=== PATIENT | male | born 1980 | race Caucasian/White ===

== ENCOUNTER 2018-02-12 23:18 | Observation (INO) | payer MEDICAID ==
[~2018-02-12] VITALS: Ht 188 cm; Wt 137.5 kg
[~2018-02-12 23:18] MED LIST: ALBU8HFA2 INH; ALBU90I INH; ALBU90OI INH; ALLO300 PO; AMOX500 PO; ASACOL HD800 MG PO; AZIT250 PO; BENZ100A PO; CEPH500 PO; CIPHYDOTSU BOTHEARS; CIPRSO LEFTEYE; CLIN300 PO; CODGUAEL PO; DOXY100 PO; FAMO20; FENT25TP TOP; HYDACE5 PO; HYDGUAL120 PO; HYDMOR2 PO; HYDR1TAB94 PO; IBUP800 PO; NAPR220; NAPR500 PO; NEOPOLHCSU OT; OMEP40CA12 PO; ONDA8 PO; OXYACE5T PO; PRED20 PO; PROC10 PO; PROC25S PR; PROCODE120 PO; PROM25; PROM25 PO; PROM25S PR; Pepcid40 MG PO; Protonix40 MG PO; RANI150 PO; RXAMOX500 PO; RXPROCODSY PO; SUCR1 PO; SULTRIDS PO; TAMS.4ER PO; TRAM50 PO; TYLENOL PRN; Zofran Odt4 MG PO; Zofran Odt8 MG SL; Zofran4 MG PO; Zofran8 MG PO
[2018-02-12 23:46] LABS: BASOPHILS ABSOLUTE AUTO 0.08 K/mm3 (0.00-0.23); BASOPHILS PERCENT AUTO 1 % (0-2); EOSINOPHILS ABSOLUTE AUTO 0.09 K/mm3 (0.00-0.68); EOSINOPHILS PERCENT AUTO 1 % (0-6); Hematocrit 53.5 % (37.0-53.0); Hemoglobin 18.4 g/dL (13.5-17.5); IMMATURE GRAN ABSOLUTE AUTO 0.06 K/mm3 (0.00-0.10); IMMATURE GRAN PERCENT AUTO 1 % (0-1); LYMPHOCYTES ABSOLUTE AUTO 3.08 K/mm3 (0.84-5.20); LYMPHOCYTES PERCENT AUTO 29 % (21-46); MONOCYTES ABSOLUTE AUTO 1.27 K/mm3 (0.16-1.47); MONOCYTES PERCENT AUTO 12 % (4-13); Mean Corpuscular HGB Conc 34.4 g/dL (31.5-36.5); Mean Corpuscular Volume 87 fL (80-100); Mean Platelet Volume 9.9 fL (9.1-12.4); NEUTROPHILS ABSOLUTE AUTO 6.08 K/mm3 (1.96-9.15); NEUTROPHILS PERCENT AUTO 57 % (41-73); Platelet Count 262 K/mm3 (150-400); RDW Coefficient Variation 11.8 % (11.7-14.2); RDW Standard Deviation 37.5 fL (35.1-46.3); Red Blood Cell Count 6.13 M/mm3 (4.30-5.90); White Blood Cell Count 10.66 K/mm3 (4.00-11.30)
[2018-02-13 00:06] LABS: Alanine Aminotransfer (ALT/SGP 52 U/L (12-78); Albumin, Blood 4.3 g/dL (3.4-5.0); Alk Phos 70 U/L (50-136); Anion Gap 15 mmol/L (6-16); Aspartate Aminotrans (AST/SGOT 29 U/L (12-37); Bilirubin, Total 0.8 mg/dL (0.1-1.0); Blood Urea Nitrogen 17 mg/dL (8-24); Bun/Creatinine Ratio 16.7 (12.0-20.0); CO2, Blood 20 mmol/L (21-32); Calcium, Blood 9.6 mg/dL (8.5-10.1); Chloride, Blood 101 mmol/L (98-108); Creatinine, Blood 1.02 mg/dL (0.60-1.20); Globulin, Blood 4.2 g/dL (2.2-4.0); Glomerular Filtration Rate >60 (60-); Glucose, Blood 142 mg/dL (70-99); Potassium, Blood 3.5 mmol/L (3.5-5.5); Sodium, Blood 136 mmol/L (136-145); Total Protein, Blood 8.5 g/dL (6.4-8.2); Troponin I <0.015 ng/mL (0.000-0.040)
[2018-02-13 00:13] LABS: Influenza A Negative (NEGATIVE); Influenza B Negative (NEGATIVE)
[2018-02-13 07:40] LABS: BASOPHILS ABSOLUTE AUTO 0.01 K/mm3 (0.00-0.23); BASOPHILS PERCENT AUTO 0 % (0-2); EOSINOPHILS ABSOLUTE AUTO 0.01 K/mm3 (0.00-0.68); EOSINOPHILS PERCENT AUTO 0 % (0-6); Hemoglobin 16.4 g/dL (13.5-17.5); IMMATURE GRAN ABSOLUTE AUTO 0.06 K/mm3 (0.00-0.10); IMMATURE GRAN PERCENT AUTO 1 % (0-1); LYMPHOCYTES PERCENT AUTO 7 % (21-46); MONOCYTES ABSOLUTE AUTO 0.49 K/mm3 (0.16-1.47); MONOCYTES PERCENT AUTO 5 % (4-13); Mean Corpuscular HGB 30.1 pg (26.0-34.0); Mean Corpuscular HGB Conc 34.2 g/dL (31.5-36.5); Mean Corpuscular Volume 88 fL (80-100); Mean Platelet Volume 9.9 fL (9.1-12.4); NEUTROPHILS ABSOLUTE AUTO 8.32 K/mm3 (1.96-9.15); NEUTROPHILS PERCENT AUTO 87 % (41-73); Platelet Count 206 K/mm3 (150-400); RDW Coefficient Variation 11.9 % (11.7-14.2); RDW Standard Deviation 37.9 fL (35.1-46.3); Red Blood Cell Count 5.45 M/mm3 (4.30-5.90); White Blood Cell Count 9.59 K/mm3 (4.00-11.30)
[2018-02-13 07:56] LABS: Anion Gap 13 mmol/L (6-16); Blood Urea Nitrogen 18 mg/dL (8-24); Bun/Creatinine Ratio 19.2 (12.0-20.0); CO2, Blood 21 mmol/L (21-32); Calcium, Blood 8.8 mg/dL (8.5-10.1); Chloride, Blood 104 mmol/L (98-108); Creatinine, Blood 0.94 mg/dL (0.60-1.20); Glomerular Filtration Rate >60 (60-); Glucose, Blood 145 mg/dL (70-99); Potassium, Blood 3.6 mmol/L (3.5-5.5); Sodium, Blood 138 mmol/L (136-145)
[2018-02-13] MEDS ORDERED: ONDA4ODT MM (12:19)
[2018-02-13] MEDS ORDERED: OMEPRAZOLE20 MG PO (12:20)
== END 2018-02-13 13:16 | disposition home or self-care (01) ==
LOC: ER 23:18 → MEDS 02-13 04:25 → ENPENDDIS 02-13 12:23 → MEDS 02-13 13:16
PROVIDERS: Emergency Medicine; Family Medicine
DX: F12.988 Cannabis use, unspecified with other cannabis-induced disorder (principal); K21.0 Gastro-esophageal reflux disease with esophagitis; K92.0 Hematemesis; I10 Essential (primary) hypertension; E66.01 Morbid (severe) obesity due to excess calories; R00.0 Tachycardia, unspecified; E86.0 Dehydration; Z87.891 Personal history of nicotine dependence; Z68.38 Body mass index [BMI] 38.0-38.9, adult
CPT/HCPCS: 36415; 74176; 80048; 80053; 83690; 84484; 85025; 87804; 93005; 93010; 96361; 96374; 96375; 96376; 99285-25; C9113; G0378; J1200; J1630; J2765; J7030

== ENCOUNTER 2018-10-06 10:19 | Day surgery (SDC) | payer OTHER ==
[~2018-10-06] VITALS: Ht 190.5 cm; Wt 149.6 kg
[~2018-10-06 10:19] MED LIST changes: +ALBU90OI; +OMEPRAZOLE20 MG PO; +ONDA4ODT MM
== END 2018-10-06 13:00 | disposition home or self-care (01) ==
LOC: ORSCSDS 10:19
PROVIDERS: Internal Medicine Gastroenterology
PROC: 0DBP8ZX Excision of Rectum, Via Natural or Artificial Opening Endoscopic, Diagnostic (ICD-10-PCS; principal; 2018-10-06 11:30)
DX: K62.5 Hemorrhage of anus and rectum (principal); K62.1 Rectal polyp; K57.30 Diverticulosis of large intestine without perforation or abscess without bleeding; K64.8 Other hemorrhoids; Z87.891 Personal history of nicotine dependence; E66.01 Morbid (severe) obesity due to excess calories; Z68.41 Body mass index [BMI] 40.0-44.9, adult; Z79.899 Other long term (current) drug therapy
CPT/HCPCS: 88305; J2250; J2704; J7120

== ENCOUNTER 2019-06-03 21:06 | Emergency (ER) | payer OTHER ==
[~2019-06-03] VITALS: Ht 190.5 cm; Wt 156.5 kg
[2019-06-03 22:22] LABS: BASOPHILS ABSOLUTE AUTO 0.03 K/mm3 (0.00-0.23); BASOPHILS PERCENT AUTO 0 % (0-2); EOSINOPHILS PERCENT AUTO 0 % (0-6); Hematocrit 50.8 % (37.0-53.0); Hemoglobin 17.4 g/dL (13.5-17.5); IMMATURE GRAN ABSOLUTE AUTO 0.06 K/mm3 (0.00-0.10); IMMATURE GRAN PERCENT AUTO 0 % (0-1); LYMPHOCYTES ABSOLUTE AUTO 1.25 K/mm3 (0.84-5.20); LYMPHOCYTES PERCENT AUTO 8 % (21-46); MONOCYTES ABSOLUTE AUTO 0.33 K/mm3 (0.16-1.47); MONOCYTES PERCENT AUTO 2 % (4-13); Mean Corpuscular HGB 30.4 pg (26.0-34.0); Mean Corpuscular HGB Conc 34.3 g/dL (31.5-36.5); Mean Corpuscular Volume 89 fL (80-100); Mean Platelet Volume 10.2 fL (9.1-12.4); NEUTROPHILS PERCENT AUTO 89 % (41-73); Platelet Count 244 K/mm3 (150-400); RDW Coefficient Variation 11.6 % (11.7-14.2); RDW Standard Deviation 37.3 fL (35.1-46.3); Red Blood Cell Count 5.72 M/mm3 (4.30-5.90); White Blood Cell Count 15.07 K/mm3 (4.00-11.30)
[2019-06-03 22:40] LABS: Alanine Aminotransfer (ALT/SGP 97 U/L (12-78); Albumin, Blood 4.2 g/dL (3.4-5.0); Albumin/Globulin Ratio 1.1 (0.8-1.8); Alk Phos 59 U/L (50-136); Anion Gap 10 mmol/L (6-16); Aspartate Aminotrans (AST/SGOT 51 U/L (12-37); Bilirubin, Total 0.8 mg/dL (0.1-1.0); Blood Urea Nitrogen 17 mg/dL (8-24); Bun/Creatinine Ratio 17.7 (12.0-20.0); CO2, Blood 23 mmol/L (21-32); Calcium, Blood 9.4 mg/dL (8.5-10.1); Chloride, Blood 106 mmol/L (98-108); Creatinine, Blood 0.96 mg/dL (0.60-1.20); Globulin, Blood 3.7 g/dL (2.2-4.0); Glomerular Filtration Rate >60 (60-); Glucose, Blood 188 mg/dL (70-99); Potassium, Blood 3.8 mmol/L (3.5-5.5); Sodium, Blood 139 mmol/L (136-145); Total Protein, Blood 7.9 g/dL (6.4-8.2)
== END 2019-06-04 | disposition home or self-care (01) ==
LOC: ER 21:06
PROVIDERS: Emergency Medicine
DX: R11.15 Cyclical vomiting syndrome unrelated to migraine (principal); Z87.891 Personal history of nicotine dependence
CPT/HCPCS: 36415; 80053; 83690; 85025; 93005; 93010; 96361; 96374; 96375; 99283-25; A9270-GY; J1200; J1630; J2405; J7030

== ENCOUNTER 2019-07-26 00:30 | Emergency (ER) | payer OTHER ==
[~2019-07-26] VITALS: Ht 190.5 cm; Wt 145.2 kg
[2019-07-26 01:10] LABS: BASOPHILS ABSOLUTE AUTO 0.04 K/mm3 (0.00-0.23); BASOPHILS PERCENT AUTO 0 % (0-2); EOSINOPHILS PERCENT AUTO 0 % (0-6); Hematocrit 52.1 % (37.0-53.0); Hemoglobin 17.8 g/dL (13.5-17.5); IMMATURE GRAN ABSOLUTE AUTO 0.05 K/mm3 (0.00-0.10); IMMATURE GRAN PERCENT AUTO 0 % (0-1); LYMPHOCYTES PERCENT AUTO 9 % (21-46); MONOCYTES ABSOLUTE AUTO 0.39 K/mm3 (0.16-1.47); MONOCYTES PERCENT AUTO 3 % (4-13); Mean Corpuscular HGB Conc 34.2 g/dL (31.5-36.5); Mean Corpuscular Volume 88 fL (80-100); Mean Platelet Volume 10.5 fL (9.1-12.4); NEUTROPHILS ABSOLUTE AUTO 11.42 K/mm3 (1.96-9.15); NEUTROPHILS PERCENT AUTO 87 % (41-73); Platelet Count 286 K/mm3 (150-400); RDW Coefficient Variation 11.4 % (11.7-14.2); RDW Standard Deviation 36.7 fL (35.1-46.3); Red Blood Cell Count 5.94 M/mm3 (4.30-5.90)
[2019-07-26 01:27] LABS: Alanine Aminotransfer (ALT/SGP 106 U/L (12-78); Albumin, Blood 4.3 g/dL (3.4-5.0); Albumin/Globulin Ratio 1.1 (0.8-1.8); Alk Phos 62 U/L (50-136); Anion Gap 13 mmol/L (6-16); Aspartate Aminotrans (AST/SGOT 58 U/L (12-37); Bilirubin, Total 1.5 mg/dL (0.1-1.0); Blood Urea Nitrogen 15 mg/dL (8-24); Bun/Creatinine Ratio 14.6 (12.0-20.0); CO2, Blood 20 mmol/L (21-32); Chloride, Blood 102 mmol/L (98-108); Creatinine, Blood 1.03 mg/dL (0.60-1.20); Ethanol (Alcohol), Blood, Med <3 mg/dL; Glomerular Filtration Rate >60 (60-); Glucose, Blood 236 mg/dL (70-99); Potassium, Blood 3.2 mmol/L (3.5-5.5); Sodium, Blood 135 mmol/L (136-145); Total Protein, Blood 8.3 g/dL (6.4-8.2)
== END 2019-07-26 03:56 | disposition home or self-care (01) ==
LOC: ER 00:30
PROVIDERS: Emergency Medicine
DX: R11.2 Nausea with vomiting, unspecified (principal); Z87.891 Personal history of nicotine dependence
CPT/HCPCS: 36415; 80053; 83690; 85025; 96361; 96374; 96375; 99284-25; G0480; J1630; J2405; J2550; J7030

== ENCOUNTER 2019-10-23 11:59 | Emergency (ER) | payer OTHER ==
[2019-10-24] MEDS ORDERED: Nexium40 MG PO (15:39)
== END 2019-10-23 12:25 | disposition left against medical advice (07) ==
LOC: ER 11:59
DX: Z53.21 Procedure and treatment not carried out due to patient leaving prior to being seen by health care provider (principal)

== ENCOUNTER 2020-02-16 13:14 | Emergency (ER) | payer OTHER ==
[~2020-02-16] VITALS: Ht 190.5 cm; Wt 131.5 kg
[~2020-02-16 13:14] MED LIST changes: +Nexium40 MG PO
[2020-02-16 13:45] LABS: BASOPHILS ABSOLUTE AUTO 0.04 K/mm3 (0.00-0.23); BASOPHILS PERCENT AUTO 0 % (0-2); EOSINOPHILS ABSOLUTE AUTO 0.01 K/mm3 (0.00-0.68); EOSINOPHILS PERCENT AUTO 0 % (0-6); Hematocrit 50.4 % (37.0-53.0); IMMATURE GRAN ABSOLUTE AUTO 0.03 K/mm3 (0.00-0.10); IMMATURE GRAN PERCENT AUTO 0 % (0-1); LYMPHOCYTES ABSOLUTE AUTO 1.21 K/mm3 (0.84-5.20); LYMPHOCYTES PERCENT AUTO 9 % (21-46); MONOCYTES ABSOLUTE AUTO 0.49 K/mm3 (0.16-1.47); MONOCYTES PERCENT AUTO 4 % (4-13); Mean Corpuscular HGB 29.6 pg (26.0-34.0); Mean Corpuscular HGB Conc 33.7 g/dL (31.5-36.5); Mean Corpuscular Volume 88 fL (80-100); Mean Platelet Volume 10.3 fL (9.1-12.4); NEUTROPHILS ABSOLUTE AUTO 11.22 K/mm3 (1.96-9.15); NEUTROPHILS PERCENT AUTO 86 % (41-73); Platelet Count 242 K/mm3 (150-400); RDW Coefficient Variation 11.7 % (11.7-14.2); RDW Standard Deviation 37.4 fL (35.1-46.3); Red Blood Cell Count 5.74 M/mm3 (4.30-5.90)
[2020-02-16 14:05] LABS: Alanine Aminotransfer (ALT/SGP 50 U/L (12-78); Albumin, Blood 4.2 g/dL (3.4-5.0); Albumin/Globulin Ratio 1.1 (0.8-1.8); Alk Phos 71 U/L (50-136); Anion Gap 10 mmol/L (6-16); Aspartate Aminotrans (AST/SGOT 31 U/L (12-37); Blood Urea Nitrogen 13 mg/dL (8-24); Bun/Creatinine Ratio 16.7 (12.0-20.0); CO2, Blood 23 mmol/L (21-32); Calcium, Blood 9.9 mg/dL (8.5-10.1); Chloride, Blood 108 mmol/L (98-108); Creatinine, Blood 0.78 mg/dL (0.60-1.20); Globulin, Blood 3.7 g/dL (2.2-4.0); Glomerular Filtration Rate >60 (60-); Glucose, Blood 151 mg/dL (70-99); Potassium, Blood 3.7 mmol/L (3.5-5.5); Sodium, Blood 141 mmol/L (136-145); Total Protein, Blood 7.9 g/dL (6.4-8.2)
[2020-02-16] MEDS ORDERED: PROM25 PO (16:43)
== END 2020-02-16 16:57 | disposition home or self-care (01) ==
LOC: ER 13:14
PROVIDERS: Emergency Medicine
DX: R11.2 Nausea with vomiting, unspecified (principal); Z87.891 Personal history of nicotine dependence
CPT/HCPCS: 36415; 80053; 83690; 85025; 96374; 96375; 99284-25; J1630; J2405; J2550

== ENCOUNTER 2020-06-26 10:01 | Day surgery (SDC) | payer OTHER ==
[~2020-06-26] VITALS: Ht 190.5 cm; Wt 127.2 kg
[~2020-06-26 10:01] MED LIST changes: +ESOM20 PO
--- NOTE | 2020-06-26 11:19 | NUR ---
06/26/20 Michelle9 Rajwinder Padilla PT UPDATED ON DELAY IN START TIME DUE TO PREVIOUS CASES RUNNING LATE. BED IN LOW, LOCKED POSITION, CALL LIGHT IN REACH.
== END 2020-06-26 12:46 | disposition home or self-care (01) ==
LOC: ORSCSDS 10:01
PROVIDERS: Internal Medicine Gastroenterology
PROC: 0DB68ZX Excision of Stomach, Via Natural or Artificial Opening Endoscopic, Diagnostic (ICD-10-PCS; principal; 2020-06-26 11:00)
PROC: 0DB98ZX Excision of Duodenum, Via Natural or Artificial Opening Endoscopic, Diagnostic (ICD-10-PCS; principal; 2020-06-26 11:00)
DX: R11.2 Nausea with vomiting, unspecified (principal); Z87.891 Personal history of nicotine dependence; E66.9 Obesity, unspecified; Z68.36 Body mass index [BMI] 36.0-36.9, adult; Z79.899 Other long term (current) drug therapy
CPT/HCPCS: 88305; 88342; J2250; J2704; J7120

== ENCOUNTER 2021-03-04 09:47 | Day surgery (SDC) | payer OTHER ==
[~2021-03-04] VITALS: Ht 190.5 cm; Wt 129.5 kg
== END 2021-03-04 12:09 | disposition home or self-care (01) ==
LOC: ORSCSDS 09:47
PROVIDERS: Internal Medicine Gastroenterology
PROC: 0DB58ZX Excision of Esophagus, Via Natural or Artificial Opening Endoscopic, Diagnostic (ICD-10-PCS; principal; 2021-03-04 11:00)
DX: R11.2 Nausea with vomiting, unspecified (principal); K44.9 Diaphragmatic hernia without obstruction or gangrene; K20.90 Esophagitis, unspecified without bleeding; Z87.891 Personal history of nicotine dependence
CPT/HCPCS: 88305; 88312; J0461; J2250; J2405; J2704; J7120

== ENCOUNTER 2021-03-10 09:07 | Day surgery (SDC) | payer OTHER ==
[~2021-03-10] VITALS: Ht 190.5 cm; Wt 128.4 kg
[2021-03-10] MEDS ORDERED: OMEP20ER PO (09:24)
--- NOTE | 2021-03-10 09:37 | NUR ---
PT ADMITTED TO [facility]. AGREES WITH PLANNED SURGERY. LUNG SOUNDS CLEAR.
--- NOTE | 2021-03-10 13:55 | NUR ---
PT ALERT AND ORIENTED, ABLE TO REPOSITION SELF IN BED. HE HAS ONE JENN DRESSING IN THE CENTER OF HIS ABDOMEN COVERING HIS INCISION AND AN ABDOMINAL BINDER ON. HE SAYS HE HAS A 1 FOR PAIN, BUT THAT IT IS MORE OF A "PINCHING DISCOMFORT" THAN PAIN. HE IS TOLERATING PO FLUIDS AND REQUESTING TO GO HOME.
--- NOTE | 2021-03-10 14:37 | NUR ---
Patient up to Ambulate independently. Gait steady. Discharge instructions reviewed with patient. Patient verbalizes understanding. Copy given to patient to take home. Patient States Post-Procedure ride home has been arranged. Dressing to procedure site clean, dry, intact with no visible drainage, swelling, erythema or bruising noted. Discharged via wheelchair to private car for ride home. ALL BELONGINGS RETURNED TO PATIENT THAT THEY CAME TO [facility] WITH.
== END 2021-03-10 22:39 | disposition home or self-care (01) ==
LOC: ORSCMMR 09:07 → ORD 10:15 → ORSCMMR 22:39
PROVIDERS: Surgery
PROC: 0WUF0JZ Supplement Abdominal Wall with Synthetic Substitute, Open Approach (ICD-10-PCS; principal; 2021-03-10 10:15)
DX: K43.9 Ventral hernia without obstruction or gangrene (principal); K21.9 Gastro-esophageal reflux disease without esophagitis; E66.9 Obesity, unspecified; Z68.35 Body mass index [BMI] 35.0-35.9, adult; Z79.899 Other long term (current) drug therapy
CPT/HCPCS: 93005; 93010; A9270; C1781; J0690; J1100; J1885; J2250; J2405; J2704; J2710; J2765; J3010; J7120

== ENCOUNTER 2021-08-19 09:48 | Observation (INO) | payer OTHER ==
[~2021-08-19] VITALS: Ht 190.5 cm; Wt 127.0 kg
[~2021-08-19 09:48] MED LIST changes: +OMEP20ER PO
[2021-08-19 15:43] LABS: Influenza A, PCR NEGATIVE (NEGATIVE); Influenza B, PCR NEGATIVE (NEGATIVE); Resp Syncytial Virus, PCR NEGATIVE (NEGATIVE); SARS-Cov-2 (COVID-19) PCR, MMC NEGATIVE (NEGATIVE)
== END 2021-08-20 16:55 | disposition home or self-care (01) ==
LOC: ER 09:48 → EOR 09:49
PROVIDERS: ADMIT Emergency Medicine
DX: F23 Brief psychotic disorder (principal); F12.10 Cannabis abuse, uncomplicated; Z87.891 Personal history of nicotine dependence; Z79.899 Other long term (current) drug therapy; Z20.822 Contact with and (suspected) exposure to COVID-19
CPT/HCPCS: 0241U; 73660; 99285-25; A9270; G0378; Q3014

== ENCOUNTER 2021-09-26 13:16 | Emergency (ER) | payer OTHER ==
[~2021-09-26] VITALS: Ht 190.5 cm; Wt 124.7 kg
== END 2021-09-26 14:47 | disposition home or self-care (01) ==
LOC: ER 13:16
DX: S01.81XA Laceration without foreign body of other part of head, initial encounter (principal); V43.52XA Car driver injured in collision with other type car in traffic accident, initial encounter; Z87.891 Personal history of nicotine dependence
CPT/HCPCS: 12002; 99282-25

== ENCOUNTER → 2021-12-31 | Outpatient (CLI) | payer OTHER | LOC: LAB SHORT 10:50 → LAB 10:50 | DX: J02.9 Acute pharyngitis, unspecified (principal) | CPT/HCPCS: 87081 ==

== ENCOUNTER 2022-08-03 13:08 | Emergency (ER) | payer OTHER ==
[~2022-08-03] VITALS: Ht 190.5 cm; Wt 128.8 kg
[2022-08-03 13:40] VITALS: BP 158/106
[2022-08-03] MEDS ORDERED: ONDA4ODT MM (13:45)
[2022-08-03] MEDS ORDERED: Norco 5-325 Ta1 EACH PO (13:45)
== END 2022-08-03 14:06 | disposition home or self-care (01) ==
LOC: ER 13:08
DX: S42.301A Unspecified fracture of shaft of humerus, right arm, initial encounter for closed fracture (principal); W22.8XXA Striking against or struck by other objects, initial encounter; Z79.899 Other long term (current) drug therapy
CPT/HCPCS: 99282

== ENCOUNTER 2022-08-05 08:04 | Day surgery (SDC) | payer OTHER ==
[2022-08-05] VITALS (7 sets, daily range): BP systolic 102–153; BP diastolic 76–100
[~2022-08-05] VITALS: Ht 190.5 cm; Wt 128.0 kg
[~2022-08-05 08:04] MED LIST changes: +Norco 5-325 Ta1 EACH PO
--- NOTE | 2022-08-05 08:59 | NUR ---
Ambulatory in Day Surgery History, Chart, Medications and Allergies reviewed before start of procedure.Pre-Op teaching done. Pt verbalizes understanding. Patient States Post-Procedure ride home has been arranged.
--- NOTE | 2022-08-05 10:04 | NUR ---
08/05/22 [email or web address] GENA ESCOBEDO PT RECEIVED NERVE BLOCK BY DR. AYERS TO OP SITE PRIOR TO PROCEDURE.
--- NOTE | 2022-08-05 12:30 | NUR ---
Discharge instructions reviewed with patient. Patient verbalizes understanding. Copy given to patient to take home. AT BEDSIDE. ABHIJEET WRAP C/D/I, CAP REFILL IS 2, SKIN WARM. RATES PAIN 5/10, TOLERABLE, GAVE OXYCODONE PER ORDER. Discharged via wheelchair to private car for ride home.
== END 2022-08-05 12:35 | disposition home or self-care (01) ==
LOC: ORSCMMR 08:04
PROVIDERS: Orthopaedic Surgery
PROC: 0PSH04Z Reposition Right Radius with Internal Fixation Device, Open Approach (ICD-10-PCS; principal; 2022-08-05 09:30)
DX: S52.571A Other intraarticular fracture of lower end of right radius, initial encounter for closed fracture (principal); Z87.891 Personal history of nicotine dependence; Z79.899 Other long term (current) drug therapy; E66.9 Obesity, unspecified; Z68.35 Body mass index [BMI] 35.0-35.9, adult
CPT/HCPCS: A9270; C1713; J0171; J0690; J1100; J1885; J2250; J2270; J2405; J2704; J3010; J7120

== ENCOUNTER 2024-01-26 11:31 | Day surgery (SDC) | payer OTHER ==
[~2024-01-26] VITALS: Ht 190.5 cm; Wt 132.0 kg
[~2024-01-26 11:31] MED LIST changes: +Lactated Ringer's 1,000 ML IV ONE; +propofoL 50 ML IV ONE
[2024-01-26] MEDS ORDERED: Lactated Ringer's 1,000 ML IV ONE (12:05)
[2024-01-26] MEDS ORDERED: propofoL 100 ML IV ONE (12:33)
[2024-01-26 15:58] VITALS: BP 111/79
== END 2024-01-26 13:46 | disposition home or self-care (01) ==
LOC: ORSCSDS 11:31
PROVIDERS: Specialist
PROC: 0DB68ZX Excision of Stomach, Via Natural or Artificial Opening Endoscopic, Diagnostic (ICD-10-PCS; principal; 2024-01-26 12:45)
PROC: 0DB58ZX Excision of Esophagus, Via Natural or Artificial Opening Endoscopic, Diagnostic (ICD-10-PCS; principal; 2024-01-26 12:45)
PROC: 0DBE8ZX Excision of Large Intestine, Via Natural or Artificial Opening Endoscopic, Diagnostic (ICD-10-PCS; principal; 2024-01-26 12:45)
PROC: 0DB98ZX Excision of Duodenum, Via Natural or Artificial Opening Endoscopic, Diagnostic (ICD-10-PCS; principal; 2024-01-26 12:45)
DX: K22.70 Barrett's esophagus without dysplasia (principal); K29.50 Unspecified chronic gastritis without bleeding; K44.9 Diaphragmatic hernia without obstruction or gangrene; K29.80 Duodenitis without bleeding; R13.10 Dysphagia, unspecified; K62.5 Hemorrhage of anus and rectum; K64.4 Residual hemorrhoidal skin tags; K64.8 Other hemorrhoids; K57.30 Diverticulosis of large intestine without perforation or abscess without bleeding; G47.33 Obstructive sleep apnea (adult) (pediatric); Z87.891 Personal history of nicotine dependence
CPT/HCPCS: 88305; 88342; J2704; J7120

== ENCOUNTER 2024-10-07 12:17 | Emergency (ER) | payer OTHER ==
[~2024-10-07] VITALS: Ht 190.5 cm; Wt 138.3 kg
[~2024-10-07 12:17] MED LIST changes: -Lactated Ringer's 1,000 ML IV ONE; -propofoL 50 ML IV ONE
[2024-10-07] MEDS ORDERED: NS 1,000 ML IV SCH (13:00)
[2024-10-07 13:42] LABS: BASOPHILS ABSOLUTE AUTO 0.06 K/mm3 (0.00-0.23); BASOPHILS PERCENT AUTO 1 % (0-2); EOSINOPHILS ABSOLUTE AUTO 0.10 K/mm3 (0.00-0.68); EOSINOPHILS PERCENT AUTO 1 % (0-6); Hematocrit 47.7 % (37.0-53.0); Hemoglobin 16.6 g/dL (13.5-17.5); IMMATURE GRAN ABSOLUTE AUTO 0.03 K/mm3 (0.00-0.10); IMMATURE GRAN PERCENT AUTO 0 % (0-1); LYMPHOCYTES ABSOLUTE AUTO 0.56 K/mm3 (0.84-5.20); LYMPHOCYTES PERCENT AUTO 7 % (21-46); MONOCYTES ABSOLUTE AUTO 0.77 K/mm3 (0.16-1.47); MONOCYTES PERCENT AUTO 10 % (4-13); Mean Corpuscular HGB Conc 34.8 g/dL (31.5-36.5); Mean Corpuscular Volume 90 fL (80-100); NEUTROPHILS ABSOLUTE AUTO 6.16 K/mm3 (1.96-9.15); NEUTROPHILS PERCENT AUTO 80 % (41-73); NRBC ABSOLUTE 0.00 K/mm3 (0.00-0.02); NRBC Auto 0.0 /100 WBC (0.0-0.2); Platelet Count 177 K/mm3 (150-400); RDW Coefficient Variation 12.0 % (11.7-14.2); RDW Standard Deviation 39.5 fL (35.1-46.3)
[2024-10-07 14:04] LABS: Alanine Aminotransfer (ALT/SGP 48.0 U/L (12-78); Albumin, Blood 3.9 g/dL (3.4-5.0); Albumin/Globulin Ratio 1.1 (0.8-1.8); Anion Gap 8.0 mmol/L (3-11); Aspartate Aminotrans (AST/SGOT 26.0 U/L (12-37); Bilirubin, Total 0.8 mg/dL (0.1-1.0); Blood Urea Nitrogen 13.0 mg/dL (8-24); CO2, Blood 26.0 mmol/L (21-32); Calcium, Blood 9.4 mg/dL (8.5-10.1); Chloride, Blood 103.0 mmol/L (98-108); Creatinine, Blood 0.8 mg/dL (0.60-1.20); Globulin, Blood 3.7 g/dL (2.2-4.0); Glucose, Blood 124.0 mg/dL (70-99); Potassium, Blood 3.5 mmol/L (3.5-5.5); Sodium, Blood 133.0 mmol/L (136-145); Total Protein, Blood 7.6 g/dL (6.4-8.2)
[2024-10-07 14:43] LABS: Source, Urine Clean Catch
[2024-10-07 14:45] LABS: Bilirubin, Urine Neg (Neg); Color, Urine Yellow (P-Yellow); Glucose Qualitative, Urine Neg (Neg); Ketones, Urine Neg (Neg); Leukocyte Esterase, Urine Neg (Neg); Protein, Urine 2+ (Neg); Specific Gravity, Urine 1.015 (1.003-1.022); Urobilinogen, Urine NORM (Normal)
[2024-10-07 14:52] LABS: Red Blood Cells, Urine 0-2 /hpf (0-2)
[2024-10-07 15:45] VITALS: BP 138/87
== END 2024-10-07 16:02 | disposition home or self-care (01) ==
LOC: ER 12:17
PROVIDERS: Student in an Organized Health Care Education/Training Program
DX: R31.9 Hematuria, unspecified (principal); R10.9 Unspecified abdominal pain; Z87.891 Personal history of nicotine dependence
CPT/HCPCS: 74177; 80053; 81001; 83690; 85025; 96360-59; 99284-25; J7030; Q9967